=== PATIENT | female | born 1995 | race African-American/Black ===

== ENCOUNTER 2017-05-16 21:11 | Emergency (ER) | payer BC ==
[2017-05-16] MEDS ORDERED: DIPHTH,PERTUSS(ACELL),TET TOX 0.5 ML DISP.SYRIN. VAX IM (22:30)
[2017-05-16] MEDS: HYDROcodone/APAP 5/325MG 1 TAB TABLET PO (22:45)
[2017-05-16] MEDS: BUPIVACAINE 0.5% 50 ML VIAL. IJ (22:45)
== END 2017-05-16 23:27 | disposition home or self-care (01) ==
LOC: ER 21:11
DX: N75.0 Cyst of Bartholin's gland (principal)
CPT/HCPCS: 56420; 99283; J3490

== ENCOUNTER 2017-09-24 13:43 | Emergency (ER) | payer BC ==
[~2017-09-24] VITALS: Ht 165.1 cm; Wt 52.2 kg
[~2017-09-24 13:43] MED LIST: HYDR-971 PO
[2017-09-24 13:51] VITALS: BP 108/59
--- NOTE | 2017-09-24 14:36 | EKG ---
[facility] [address] [place] [address] Test Date: 2017-09-24 Test Time: 14:29:08 Pat Name: GIANA MONSIVAIS Department: Room: Gender: F Recycling Operator: : 1995 Requested By: YONG JIMENEZ Order Number: [id number] Reading MD: Measurements Intervals [place] Rate: 75 P: -44 NM: 194 QRS: 65 QRSD: 62 T: 1 QT: 368 QTc: 413 Interpretive Statements SINUS RHYTHM R-S TRANSITION ZONE IN V LEADS DISPLACED TO THE RIGHT OTHERWISE NORMAL ECG No previous ECG available for comparison
--- NOTE | 2017-09-24 15:29 | PHYS DOC ---
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 Patient states she felt like she was going to pass out and she went down to her knees she states that she couldn't see or hear anyone put denies any loss of consciousness. She denies any complaints she denied any chest pain, shortness of breath, headache, ear ringing, neck pain, or injury prior to the syncopal episode. States that she has had 10 of these episodes in the last year. She states that she had not eaten anything since about 7 PM last night. EMS stated that the patient's blood sugar on arrival was 80. Patient denies any medical history, surgical history, or any allergies to any medications. She states she feels fine and does not want to be here, however she was encouraged to go to the hospital by her employer and EMS. She denies any pain or complaints at this time. Review of Systems Review of Systems Constitutional: Denies fever or chills [] Eyes: Denies change in visual acuity, redness, or eye pain [] HENT: Denies nasal congestion or sore throat [] Respiratory: Denies cough or shortness of breath [] Cardiovascular: Denies chest pain or palpitations GI: Denies abdominal pain, nausea, vomiting, or diarrhea [] : Denies loss of bowel or bladder control during event Musculoskeletal: Denies back pain or joint pain [] Integument: Denies rash or skin lesions [] Neurologic: Denies headache, focal weakness or sensory changes; henri feeling faint at work going down to her knees and not being able to hear or see those around her for a matter of seconds[] All other systems were reviewed and found to be within normal limits, except as documented in this note. Allergies Allergies Allergies Coded Allergies Type Severity Reaction Last Updated Verified No Known Drug Allergies 05/16/17 No Physical Exam Physical Exam Constitutional: Well developed, well nourished, no acute distress, non-toxic appearance. [] HENT: Normocephalic, atraumatic, bilateral external ears normal, oropharynx moist, no oral exudates, nose normal. [] Eyes: PERRLA, EOMI, conjunctiva normal, no discharge. [] Neck: Normal range of motion, no tenderness, supple, no stridor. [] Cardiovascular:Heart rate regular rhythm, no murmur [] Lungs & Thorax: Bilateral breath sounds clear to auscultation [] Abdomen: Bowel sounds normal, soft, no tenderness, no masses, no pulsatile masses. [] Skin: Warm, dry, no erythema, no rash. [] Back: No tenderness, no CVA tenderness. [] Extremities: No tenderness, no cyanosis, no clubbing, ROM intact, no edema. [] Neurologic: Alert and oriented X 3, normal motor function, normal sensory function, no focal deficits noted. [] Psychologic: Affect normal, judgement normal, mood normal. [] Current Patient Data Vital Signs Vital Signs Date Time Temp Pulse Resp B/P (MAP) Pulse Ox O2 Delivery O2 Flow Rate FiO2 09/24/17 13:51 98.4 77 16 108/59 (75) 100 Room Air 98.4 Lab Values Laboratory Tests Test 09/24/17 14:44 POC Urine HCG, Qualitative Hcg negative (Negative) EKG EKG 1429- ekg sinus rhythm, no STEMI read by Dr. Peacock. Radiology/Procedures Radiology/Procedures [] Course & Med Decision Making Course & Med Decision Making Pertinent Labs and Imaging studies reviewed. (See chart for details) Patient is a 22-year-old female who presented to the emergency room today via EMS with complaints of a syncopal episode today while working. VSS, EKG is normal sinus rhythm, no signs of STEMI, urine test was negative. Orthostatic blood pressures were normal. Patient declined any further evaluation for her syncopal episode. Patient was instructed to follow-up with her primary care doctor further evaluation. Patient verbalized understanding of home care, follow-up, and return to ED instructions for worsening symptoms. She denies any further questions or concerns, she is accompanied by her mother. [] Dragon Disclaimer Dragon Disclaimer This electronic medical record was generated, in whole or in part, using a voice recognition dictation system. Departure Departure Impression: Primary Impression: Episode of syncope Disposition: HOME, SELF-CARE Condition: STABLE Referrals: NO PCP (PCP) Patient Instructions: Syncope, [id number]-[id number] Additional Instructions: Be sure to eat something before going to work. Follow-up with your primary care doctor for further evaluation. Return to the ER for symptoms worsen. Problem Qualifiers Primary Impression: Episode of syncope Syncope type: unspecified Qualified Codes: R55 - Syncope and collapse YONG JIMENEZ RABBIT DRESSER Sep 24, 2017 15:29
== END 2017-09-24 15:54 | disposition home or self-care (01) ==
LOC: ER 13:43
DX: R55 Syncope and collapse (principal)
CPT/HCPCS: 81025; 93005; 99283

== ENCOUNTER 2017-11-23 16:00 | Emergency (ER) | payer BC ==
[~2017-11-23] VITALS: Ht 165.1 cm; Wt 54.4 kg
[2017-11-23 16:20] VITALS: BP 118/65
[2017-11-23] MEDS ORDERED: LIDOCAINE 1% PF 2 ML VIAL. INJ ONE (16:45)
--- NOTE | 2017-11-23 16:45 | PHYS DOC ---
Past Medical History Past Medical History: No Pertinent History Past Surgical History: Other Additional Past Surgical Histo: bartholin cyst Alcohol Use: None Drug Use: None Adult General Chief Complaint Chief Complaint: ABSCESS HPI HPI Patient is a 22 year old AA female who presents to the emergency room complaints of swollen, tender left labia for the last 3-4 days. Patient states that 2 months ago she had a Bartholin's cyst surgery in the same area. She denies any drainage, irregular vaginal discharge, dysuria, urinary frequency, or pelvic pain. She also denies any fever, nausea, vomiting, or abdominal pain. Review of Systems Review of Systems Constitutional: Denies fever or chills [] GI: Denies abdominal pain, nausea, or vomiting [] : Denies irregular vaginal discharge, dysuria, increased urinary frequency, or hematuria; reports swollen tender left labia for 3-4 days [] Musculoskeletal: Denies back pain or joint pain [] Integument: Denies rash or skin lesions [] Neurologic: Denies headache, focal weakness or sensory changes [] All other systems were reviewed and found to be within normal limits, except as documented in this note. Current Medications Current Medications Current Medications Medications (Trade) Dose Ordered Sig/Star Start Time Stop Time Status Last Admin Dose Admin Lidocaine HCl (Xylocaine-Mpf 1% 2ml Vial) 6 ml 1X ONCE 11/23/17 16:45 11/23/17 16:46 DC 11/23/17 17:04 6 ML Allergies Allergies Allergies Coded Allergies Type Severity Reaction Last Updated Verified No Known Drug Allergies 05/16/17 No Physical Exam Physical Exam Constitutional: Well developed, well nourished, no acute distress, non-toxic appearance. [] HENT: Normocephalic, atraumatic, bilateral external ears normal, oropharynx moist, no oral exudates, nose normal. [] Eyes: PERRLA, conjunctiva normal, no discharge. [] Gu: swelling and tenderness of left labia consistent with Bartholin's cyst otherwise external genitalia is normal Skin: Warm, dry, no erythema, no rash. [] Neurologic: Alert and oriented X 3, normal motor function, normal sensory function, no focal deficits noted. [] Psychologic: Affect normal, judgement normal, mood normal. [] Current Patient Data Vital Signs Vital Signs Date Time Temp Pulse Resp B/P (MAP) Pulse Ox O2 Delivery O2 Flow Rate FiO2 11/23/17 16:20 99.0 94 16 118/65 (82) 99 Room Air 99.0 EKG EKG [] Radiology/Procedures Radiology/Procedures [] Course & Med Decision Making Course & Med Decision Making Pertinent Labs and Imaging studies reviewed. (See chart for details) [] Dragon Disclaimer Dragon Disclaimer This electronic medical record was generated, in whole or in part, using a voice recognition dictation system. Departure Departure Impression: Primary Impression: Bartholin's cyst Disposition: HOME, SELF-CARE Condition: STABLE Referrals: NO PCP (PCP) JONATHAN HERNANDEZ MD Patient Instructions: Bartholin's Cyst and Abscess-Brief Additional Instructions: Fill the prescriptions and use them as directed. Sitz baths in warm water 3-4x/ day. Call Dr. Hernandez's office for a follow up appointment on Saturday, return to the ER if your symptoms worsen. Scripts Lidocaine (TOPICAINE) 113 Gm Gel..gram. 1 STACEY TP PRN PRN for PAIN, #1 EACH Prov: YONG JIMENEZ MINERAL SURVEYING TECHNICIAN 11/23/17 Hydrocodone Bit/Acetaminophen (HYDROCODONE-APAP 5-325 ) 1 Each Tablet 1 TAB PO PRN Q6HRS PRN for PAIN for 3 Days, #12 TAB 0 Refills Prov: YONG JIMENEZ APRN 11/23/17 Clindamycin Hcl (CLINDAMYCIN HCL) 150 Mg Capsule 450 MG PO TID for 10 Days, #90 CAP 0 Refills Prov: YONG JIMENEZ APRN 11/23/17 YONG JIMENEZ APRN Nov 23, 2017 16:45
[2017-11-23] MEDS ORDERED: HYDR-2758 PO (17:48)
[2017-11-23] MEDS ORDERED: CLIN150C14 PO (17:48)
[2017-11-23] MEDS ORDERED: LIDO113G2 TP (17:48)
== END 2017-11-23 17:55 | disposition home or self-care (01) ==
LOC: ER 16:00
DX: N75.0 Cyst of Bartholin's gland (principal)
CPT/HCPCS: 96372; 99283